=== PATIENT | female | born 2000 | race Caucasian/White ===

== ENCOUNTER 2018-12-07 14:48 | Emergency (ER) | payer BC ==
[2018-12-07 15:42] VITALS: BP 126/78
--- NOTE | 2018-12-07 16:06 | UC ---
Skin Complaint HPI - HPI Summary HPI Summary: 18-year-old female comes in with a chief complaint of rash on both legs. Started about 2 days ago after she shaved. She has multiple follicles are irritated some of them have pus discharge. No fevers no chills feels well otherwise. Has not recently been in a hot tub. [place] in [place] ago but does not believe she came in any contact with any poison IV. She does itch. - History of Current Complaint Chief Complaint: UCSkin Time Seen by Provider: 12/07/18 15:58 Stated Complaint: LAXMI LEG - SKIN Hx Last Menstrual Period: 11/23/18 Pain Intensity: 5 - Allergy/Home Medications Allergies/Adverse Reactions: Allergies Allergy/AdvReac Type Severity Reaction Status Date / Time No Known Allergies Allergy Verified 12/07/18 15:35 Home Medications: Home Medications Ethinyl Estradiol/Drospirenone [Ann 28 Tablet] 1 each PO DAILY 12/07/18 [ History Confirmed 12/07/18] Loratadine 10 mg PO DAILY PRN 12/07/18 [History Confirmed 12/07/18] PMH/Surg Hx/FS Hx/Imm Hx Previously Healthy: Yes - Surgical History Surgical History: Yes Surgery Procedure, Year, and Place: B/L shoulder sx. [place] teeth extractions - Family History Known Family History: Positive: Non-Contributory - Social History Alcohol Use: Rare Substance Use Type: None Smoking Status (MU): Never Smoked Tobacco Review of Systems All Other Systems Reviewed And Are Negative: Yes Constitutional: Positive: Negative Skin: Positive: Other - SEE HPI Eyes: Positive: Negative ENT: Positive: Negative Respiratory: Positive: Negative Cardiovascular: Positive: Negative Gastrointestinal: Positive: Negative Motor: Positive: Negative Neurovascular: Positive: Negative Musculoskeletal: Positive: Negative Neurological: Positive: Negative Psychological: Positive: Negative Is Patient Immunocompromised?: No Physical Exam Triage Information Reviewed: Yes Appearance: Well-Appearing, No Pain Distress, Well-Nourished Vital Signs: Initial Vital Signs Temp 97.6 F 12/07/18 15:37 Pulse 94 12/07/18 15:37 Resp 16 12/07/18 15:37 BP 126/78 12/07/18 15:37 Pulse Ox 100 12/07/18 15:37 Vital Signs Reviewed: Yes Eye Exam: Normal Eyes: Positive: Conjunctiva Clear Respiratory: Positive: No respiratory distress Musculoskeletal: Positive: Strength Intact, ROM Intact Neurological Exam: Normal Neurological: Positive: Alert, Muscle Tone Normal Psychological Exam: Normal Psychological: Positive: Age Appropriate Behavior Skin: Positive: Other - DIFFUSE FOLLICULITIS B/L LEGS WORSE ON RT LEG WITH AN ERYTHEMATOUS BASE AND SOME SEROUS AND PUSTULES. NO STREAKING. Course/Dx - Diagnoses Provider Diagnosis: Folliculitis Discharge - Sign-Out/Discharge Documenting (check all that apply): Patient Departure All imaging exams completed and their final reports reviewed: No Studies - Discharge Plan Condition: Stable Disposition: HOME Prescriptions: Cephalexin CAP* [Keflex CAP*] 500 mg PO TID #30 cap Mupirocin 1 applic TOPICAL TID #22 gm Patient Education Materials: Folliculitis (ED) Referrals: [facility] [Outside] Additional Instructions: FOLLOW UP WITH YOUR DOCTOR IF NOT COMPLETELY IMPROVED. GET RECHECKED SOONER IF YOUR CONDITION WORSENS OR ANY QUESTIONS OR CONCERNS. - Billing Disposition and Condition Condition: STABLE Disposition: Home
== END 2018-12-07 16:14 | disposition home or self-care (01) ==
LOC: UCCORT 14:48
DX: L73.9 Follicular disorder, unspecified (principal)
CPT/HCPCS: 99202; G0463